=== PATIENT | male | born 1945 | race Caucasian/White ===

== ENCOUNTER 2017-08-26 12:38 | Outpatient (CLI) | payer MEDICARE ==
--- NOTE | 2017-08-26 14:06 | RAD ---
2 VIEWS CHEST: Date: 08/26/17 PROVIDED CLINICAL HISTORY: Dyspnea. FINDINGS: Comparison made with the study dated 04/24/17. Cardiac and mediastinal silhouette is unchanged in appearance. No focal consolidation, pleural fluid, or pneumothorax apparent. Chronic obstructive changes are redemonstrated, similar to the prior study . The interstitial densities at the right lung base appear similar to the prior study. IMPRESSION: Stable radiographic appearance of the chest. POS: OFF
== END 2017-08-26 12:39 | disposition home or self-care (01) ==
LOC: RAD 12:38
PROVIDERS: ATTEND Internal Medicine Pulmonary Disease
DX: R06.00 Dyspnea, unspecified (principal)
CPT/HCPCS: 71020

== ENCOUNTER 2023-11-04 09:35 | Outpatient (CLI) | payer MEDICARE ==
[2023-11-04 11:01] LABS: #Eosinphils 0.1 10x3/uL (0.0-0.5); #Monocytes 0.4 10x3/uL (0.0-1.1); #Neutrophils 2.6 10x3/uL (1.5-8.4); %Basophils 0.8 % (0.0-2.0); %Eosinophils 1.5 % (0.0-6.0); %Lymphocytes 22.5 % (18.0-47.0); %Monocytes 9.6 % (0.0-10.0); %Neutrophils 65.3 % (40.0-75.0); Hematocrit 37.9 % (38.8-50.0); Mean Corpuscular HGB CONC 34.3 g/dL (32.0-36.0); Mean Corpuscular Hemoglobin 33.2 pg (27.0-33.0); Mean Corpuscular Volume 96.9 fl (81.2-95.1); Mean Platelet Volume 9.7 fl (7.4-10.4); Platelet Count 191 10x3/uL (150-450); RBC Distribution Width 12.3 % (11.5-14.5); Red Blood Cell (RBC) Count 3.91 10x6/uL (4.32-5.72)
[2023-11-04 11:29] LABS: Anion Gap 9 mmol/L (10-20); BUN (Urea Nitrogen) 19 mg/dL (8.4-25.7); Calc. Creatinine Clearance 0 mL/min (70-130); Calcium 8.9 mg/dL (7.8-10.44); Carbon Dioxide 30 mmol/L (23-31); Chloride 99 mmol/L (98-107); Estimated GFR 87; Glucose 90 mg/dL (83-110); Potassium 4.4 mmol/L (3.5-5.1); Sodium 134 mmol/L (136-145)
== END 2023-11-04 09:36 | disposition home or self-care (01) ==
LOC: LABBT 09:35
PROVIDERS: ATTEND Surgery
DX: Z01.818 Encounter for other preprocedural examination (principal); K42.9 Umbilical hernia without obstruction or gangrene
CPT/HCPCS: 80048; 85025; 93005; 93010

== ENCOUNTER 2023-11-12 06:55 | Day surgery (SDC) | payer MEDICARE ==
[2023-11-04 10:09] VITALS: BMI 20.7
[2023-11-12] MEDS ORDERED: EPINEPHrine 1 MG/ML VIAL ONE (08:13)
[2023-11-12] MEDS ORDERED: Bupivacaine 0.25% HCL 30 ML VIAL ONE (08:13)
[2023-11-12] MEDS ORDERED: PROPOFOL 20 ML ONE (08:54)
[2023-11-12] MEDS ORDERED: fentaNYL 50 mcg/mL 1 mL Vial ONE (08:54)
[2023-11-12] MEDS ORDERED: Lidocaine 1% PF 5 ML VIAL ONE (08:54)
[2023-11-12] MEDS ORDERED: Sodium Chloride 0.9% 100 ML ONE (08:57)
[2023-11-12] MEDS ORDERED: CEFAZOLIN 2 GM VIAL ONE (08:57)
[2023-11-12] MEDS ORDERED: ePHEDrine Sulfate 50 MG/10 ML VIAL ONE (09:19)
[2023-11-12] MEDS ORDERED: Ondansetron PF 4 MG/2 ML Vial ONE (09:27)
== END 2023-11-12 11:30 | disposition home or self-care (01) ==
LOC: SDC 06:55
PROVIDERS: ATTEND Surgery
PROC: 0WUF0JZ Supplement Abdominal Wall with Synthetic Substitute, Open Approach (ICD-10-PCS; principal; 2023-11-12)
DX: K42.9 Umbilical hernia without obstruction or gangrene (principal); K43.9 Ventral hernia without obstruction or gangrene; I10 Essential (primary) hypertension; J44.9 Chronic obstructive pulmonary disease, unspecified; Z87.891 Personal history of nicotine dependence; Z88.5 Allergy status to narcotic agent; Z90.49 Acquired absence of other specified parts of digestive tract; Z79.899 Other long term (current) drug therapy
CPT/HCPCS: 49591; C1889; J0171; J3010; J0665; J2405; J2704; J3490